=== PATIENT | female | born 1950 | race Caucasian/White ===

== ENCOUNTER 2017-05-31 09:05 | Outpatient (RCR) | payer OTHER, SELFPAY | END 2017-06-22 23:59 | LOC: NS 09:05 | PROVIDERS: Family Provider Family Medicine; PCP Family Medicine; Visit Provider Family Medicine | DX: E78.5 Hyperlipidemia, unspecified (principal); R73.03 Prediabetes; Z71.3 Dietary counseling and surveillance | CPT/HCPCS: 97802 ==

== ENCOUNTER 2017-12-19 13:00 | Outpatient (RCR) | payer OTHER, SELFPAY | END 2017-12-23 23:59 | LOC: NS 13:00 | PROVIDERS: Family Provider Family Medicine; PCP Family Medicine; Visit Provider Family Medicine | DX: E78.5 Hyperlipidemia, unspecified (principal); Z71.3 Dietary counseling and surveillance | CPT/HCPCS: 97803 ==

== ENCOUNTER 2018-01-09 08:48 | Outpatient (RCR) | payer OTHER, SELFPAY | END 2018-01-09 23:59 | LOC: NS 08:48 | PROVIDERS: Family Provider Family Medicine; PCP Family Medicine; Visit Provider Family Medicine | DX: E78.5 Hyperlipidemia, unspecified (principal); R73.03 Prediabetes; Z71.3 Dietary counseling and surveillance | CPT/HCPCS: 97803 ==

== ENCOUNTER → 2021-02-13 14:47 | Outpatient (CLI) | payer OTHER, SELFPAY ==
--- NOTE | 2021-02-13 14:54 | RAD_ITS ---
STUDY: X-RAY - PELVIS REASON FOR EXAM: Female, 70 years old. PAIN TECHNIQUE: One view of the pelvis was obtained. COMPARISON: None. FINDINGS: There is a non-specific bowel gas pattern. Normal visualized soft tissue structures. Normal bilateral iliac wings, sacroiliac joints and visualized sacrum. Normal visualized bilateral superior and inferior pubic rami. Normal pubic symphysis. Normal ischial tuberosities. Normal visualized right femoral head. Normal right acetabulum. Normal right hip joint. Normal visualized left femoral head. Normal left acetabulum. Normal left hip joint. RAD/Pelvis 1 or 2 Views IMPRESSION: Normal x-ray examination of the pelvis. Electronically Signed: Roel Gr MD at 6:18 EDT Tel , Service support ,
[2021-02-13 17:35] LABS: Absolute Lymphocyte Count 2.37 X10^3/uL (0.83-4.51); Basophil# 0.07 X10^3/uL; Basophil% 0.8 % (0-1); Eosinophil# 0.08 X10^3/uL; Eosinophils% 0.9 % (0-5); Hematocrit 46.8 % (37-47); Hemoglobin 14.7 g/dL (12.0-15.0); Lymphocyte # 2.37 X10^3/ul (0.83-4.51); Mean Corp Hgb Conc 31.4 g/dL (32-36); Mean Corpuscular Hgb 30.2 pg (27.0-32.0); Mean Corpuscular Volume 96.3 fL (81-99); Mean Platelet Vol. 10.1 fl (6.2-12.0); Monocyte# 0.46 X10^3/uL; NRBC Flagged by Analyzer 0 % (0-5); Neutrophil # 5.99 X10^3/uL (2.7-7.7); Neutrophil % 65.8 % (47-70); Platelet Count 438 K/mm3 (150-450); RBC Distribution Width CV 13.4 % (11.6-14.6); RBC Distribution Width SD 47.7 fl (35.1-43.9); Red Blood Count 4.86 M/mm3 (4.2-5.4); White Blood Count 9.1 K/mm3 (4.4-11.0)
[2021-02-13 17:36] LABS: ALB/GLOB Ratio 0.9 RATIO (0.9-2.4); AST(SGOT) 16 U/L (15-37); Alanine Aminotransfer ALT/SGPT 37 U/L (13-56); Albumin, Serum 3.9 g/dL (3.2-5.0); Alkaline Phosphatase 119 U/L (45-117); Anion Gap 7 (5-15); BUN 21 mg/dL (7-18); BUN/Creat Ratio 24.1 RATIO (10-20); CRP 8.81 mg/L (0.0-3.0); Calcium,Total 9.9 mg/dL (8.5-10.1); Chloride 101 mmol/L (98-107); Creatinine, Serum 0.87 mg/dL (0.55-1.02); EST Glomerular Filtration Rate 68 mL/min (>60); Est Glom Filt Rate - Afr Amer 83 mL/min (>60); Globulin 4.3 g/dL (2.2-4.2); Glucose 97 mg/dL (74-106); Potassium 4.1 mmol/L (3.5-5.1); Protein, Total 8.2 g/dL (6.4-8.2); Rheumatoid Factor < 10.0 IU/mL (<15); Sodium Level 138 mmol/L (136-145)
[2021-02-13 18:05] LABS: Erythrocyte Sedimentation Rate 13 mm/hr (0-30)
[2021-02-16 08:09] LABS: Hepatitis B Surface Antibody Non-Reactive; Hepatitis B Surface Antigen Non-Reactive (Nonreactive); Hepatitis C Antibody Non-Reactive (Nonreactive)
[2021-02-16 13:20] LABS: ANTINUCLEAR ANTIBODIES DIRECT Negative (Negative)
[2021-02-17 08:33] LABS: CCP IgG Antibodies 4 units (0-19)
== END ==
PROVIDERS: PCP Family Medicine; Referring Provider Internal Medicine Rheumatology; Visit Provider Internal Medicine Rheumatology
DX: M06.4 Inflammatory polyarthropathy (principal); M79.7 Fibromyalgia; M47.897 Other spondylosis, lumbosacral region; D69.2 Other nonthrombocytopenic purpura; R19.8 Other specified symptoms and signs involving the digestive system and abdomen; G62.9 Polyneuropathy, unspecified; I10 Essential (primary) hypertension; H93.13 Tinnitus, bilateral; I71.2 Thoracic aortic aneurysm, without rupture; M21.42 Flat foot [pes planus] (acquired), left foot; K21.9 Gastro-esophageal reflux disease without esophagitis; F41.9 Anxiety disorder, unspecified
CPT/HCPCS: 36415; 72170; 80053; 85025; 85652; 86038; 86140; 86200; 86431; 86706; 86803; 87340

== ENCOUNTER 2022-01-19 13:34 | Outpatient (RCR) | payer OTHER, SELFPAY | END 2022-01-22 23:59 | LOC: DC 13:34 | PROVIDERS: PCP Family Medicine | DX: E11.9 Type 2 diabetes mellitus without complications (principal); E66.9 Obesity, unspecified | CPT/HCPCS: 97802 ==

== ENCOUNTER 2022-03-16 11:00 | Outpatient (RCR) | payer OTHER, SELFPAY | END 2022-03-24 23:59 | LOC: DC 11:00 | PROVIDERS: PCP Family Medicine | DX: E11.9 Type 2 diabetes mellitus without complications (principal) | CPT/HCPCS: 97803 ==

== ENCOUNTER 2022-04-12 14:00 | Outpatient (RCR) | payer OTHER, SELFPAY ==
--- NOTE | 2022-03-09 10:22 | HP.OTEVAL ---
Patient's Visit Information RAMA WOODWARD is a 71 year old F, referred to Occupational Therapy by SHIRAZ DIAS, with a diagnosis of bilateral hand/wrist pain. Date of Evaluation: 03/09/22 Occupational Therapist: Keri Connelly, OTR/Butch, CHT - Subjective This 71 year old female was seen for OT eval with bilateral hand and wrist pain- pt states she has struggles throughout the years due to pain- pt states she would like to know what she can do to decrease her hand and wrist pain to continue with ADLS and IADLS. 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 - ADLs Kitchen: Chop with knife, Peel fruits & vegetables, Open jars, Open bottle caps, Lift gallon of milk, Pour from pitcher, Take dish out of oven - Pain bilateral hand/wrist 5 Pain Intensity Range: 8 - ROM Wrist: right 45/55 left 60/50 CMC: right 15* left 20 MP: right 55* left 60 IP: right 70* left 60* Radial Abduction: right 35* left 40* ROM Comments: demo arthritis deformities on bilateral hands. bilateral shoulder sign at CMC. right MP instability - Strength Tung Nut Grower: right 12# left 17# has pain Lateral Pinch: right unable left 1# - Quick DASH-Disab of Arm,Shoulder& Hand Quick DASH Score: 84.0900 - Goals Goal:: PT will demo an increase in project production engineer strength by 20# to increase independent with basic occupations of daily living to return pt to PLOF by D/C. Pt will demo an increase in lateral and tripod pinch by 2# to increase pts independent with opening baggies, containers at PLOF by D/C. Goal:: Pt will report pain no greater than 1/10 with use of affected hand with BADLs and IADLs by d/c. Goal:: Pt will demo understanding of joint protection and ergonomics when performing BADLs and IADLs by d/c. Pt will demo understanding of adaptive Equipment use to decrease stress on joints to allow pt to perform BADSL and IADLS at BRIDGET level. Goal:: Pt will demo ind. Donning/doffing of custom orthosis by end of 1st session. Pt will demonstrate understanding of orthosis use and precautions by end of 1st session and demonstrate knowledge of returning to clinic if orthosis needs adj. to increase comfort by end of 1st session. Therapist ed. Pt on correct donning/doffing orthosis, use and precautions. Pt agrees to return to clinic to have orthosis adj if needed. - Rehabilitation General Assessment: pt symptoms of pain and noted weakness increase need of assistance with ADLs and IADls- pt would benefit from skilled OT services 1-2x week for 4 weeks to ed. pt on joint protection cristopher, martin of custom orthosis, along with ed. on bracing and modalities to decrease pts pain to increase pts function use of bilateral hands for ADLs by d/c. Rehabilitation Potential: Good - Anticipated Interventions A/AAROM/PROM, Triggerpoint Release, Modalities, Orthoses, Joint Protection/Energy Conservation, Education re assistive Equipment, Education re Diagnosis, Home Program - Visit Plan Frequency: 1-2x /Week Duration: 4 Weeks TEXT: Thank you for the opportunity to evaluate your patient. For Medicare and Medicare HMO plans, please review the plan of care and approve it. It will need to be FAXED BACK to us at [phone] for Medicare purposes. Please let me know if there are questions or concerns regarding this plan of care. Physician Signature: Date:
--- NOTE | 2022-03-09 10:45 | HP.PTEVAL_ITS ---
Patient's Visit Information RAMA WOODWARD is a 71 year old F referred to Physical Therapy by SHIRAZ DIAS with a diagnosis of Back pain. Date of Evaluation: 03/09/22 Physical Therapist: Melo Thrasher, DPT, OCS, CSCS - Visit Plan Frequency: 3x /Week Duration: 4-6 Weeks Plan: 3x/week for 4 weeks for aquatic therapy for. 1. back ROM. 2. HS and quad stretches. 3. posture, core and LE(focus R hip ) strength. 4. Teach all for I progression to community pool as tolerated. - Subjective I had muscles come detached from R hip bone and had surgery in 2018 but it did not take. Saw another surgeon who stitched them back in 2019 but they did not stay. Now R hip and LB hurt every step. Had injection in R hip bursa. Pain is random and radiates and rotates differently. Pain every step and see Dr. Baxter for pain management and got 3rd injection back , bursa and hip and bursa helped most. 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 H/O back surgery tumor benign removal. Has L TKA and partial on R knee. H/o hysterectomy and prolapse and bladder repair. H/o foot problems and hammer toe. prediabetic. Seeing OT for OA in thumbs. Has FM. Will see neurologist for some nerve issues in legs(tingling) Gabapentin helps this. Uses cane to get around, has a rollator walker. Uses it sometimes. Has wh walker at home also. uses motorized cart at store. Can't walk or stand long due to pain in LB. hard to walk to mailbox, feels good sitting. Basic aDLs are getting done painfully. Hobbies include knitting and sewing and limited with hands. Has to take frequent breaks from sitting. Drives. No regular exercises. Had PT in [place], stretching and supine leg strength and counter stretches. - Pain L hip and LB Pain Intensity (Out of 10): 6 Pain Intensity Range: 6, 8 - Objective R trendelenberg in gait obvious without AD but safe. Much better with cane in L UE, short L step length. Pain every step verbally. Transfers bed and chair are I. Steps prefers to use L and requires a rail and cane. Can use R but much weaker and unable to stabilize pelvis as well. AROM ankles WFL and strength 4/5. Knees AROM WFL and strength flexion 4- and extension3+. Hip AROM 0 extension R and 5 L, 100 B flexion, 20 abduction R and 17 L. Rotations are WFL. Strength in hips ext, abd, 3R and 4- L. flexion 4- L and 3+ R. reflexes 2/3 patella and achilles. Sensation WNL to gross light touch. - Balance/Special Test Scores Functional Gait Assessment Score: 18 % Disability: 40.0000 Lower Extremity Functional Score: 7 - Goals Goal 1:: Ambulate 10 minutes with pain 4/10 or less Goal Time Frame: 4-6 Weeks Goal 2:: 50% better subjectively in overall mobility and pian Goal Time Frame: 4-6 Weeks Goal 3:: I appropriate pool program to do in [place] on her own. Goal 4:: LEFS 35 Goal Time Frame: 4-6 Weeks - Rehabilitation Potential Physical Therapy Diagnosis: R hip and back pain and difficulty with mobility Rehabilitation Potential: Questionable - Anticipated Interventions Patient/Client Instruction: Educate patient on: Condition, Plan of Care For the Purpose of:: To decrease pain, To increase ROM, To improve muscle performance and motor function, To increase tolerance to activity/condition/position Therapeutic Exercise to Include: Strength training, Postural training, In an a quatic setting, Active ROM, Dynamic Lumbar Stabilization For the Purpose of:: To decrease pain, To increase ROM, To improve muscle performance and motor function, To increase tolerance to activity/condition/position, To improve ability of physical actions for home/community/work/leisure Thank you for the opportunity to evaluate your patient. For Medicare and Medicare HMO plans, please review the plan of care and approve it. It will need to be FAXED BACK to us at [phone] for Medicare purposes. For Medicare only, by signing this I certify the plan of care. Please let me know if there are questions or concerns regarding this plan of care. Physician Signature: Date:
--- NOTE | 2022-04-05 15:33 | HP.OTDCSUM ---
It has been my pleasure to treat RAMA WOODWARD under orders from SHIRAZ DIAS, for the diagnosis of bilateral hand/wrist pain for a total of 6 visit(s). Please see the following information for a summary of their discharge status. % Improvement: 10 Objective/Function: pt states she has made changes with how she carries her bag and with daily tasks to help to protect her joints. pt states she rest when she can. 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 right 12# left 17#. Today's Urban Planning Teacher strength. L-35#. R- 25#. right lateral pinch unable due to pain at MPJ left lateral pinch 2#. pt has made good gains with her scrap bunch maker strength but continues to have pain-. pt understands joint protection cristopher. utilization of bracing as needed. pt will be d/c with HEP Patient Goals: Decrease Pain, Use Hand/Wrist/Arm Normally Again Goal:: PT will demo an increase in scrap bunch maker strength by 20# to increase independent with basic occupations of daily living to return pt to PLOF by D/C. Pt will demo an increase in lateral and tripod pinch by 2# to increase pts independent with opening baggies, containers at PLOF by D/C. Goal:: Pt will report pain no greater than 1/10 with use of affected hand with BADLs and IADLs by d/c. Goal:: Pt will demo understanding of joint protection and ergonomics when performing BADLs and IADLs by d/c. Pt will demo understanding of adaptive Equipment use to decrease stress on joints to allow pt to perform BADSL and IADLS at BRIDGET level. Goal:: Pt will demo ind. Donning/doffing of custom orthosis by end of 1st session. Pt will demonstrate understanding of orthosis use and precautions by end of 1st session and demonstrate knowledge of returning to clinic if orthosis needs adj. to increase comfort by end of 1st session. Therapist ed. Pt on correct donning/doffing orthosis, use and precautions. Pt agrees to return to clinic to have orthosis adj if needed. Plan: paraffin for at home use( pt. to obtain unit). joint protection. ergonomics. stretching to B hands, wrist Discharge Comments: pt was seen for 6 OT visits. pt was ed. in joint protection and supportive bracing. pt demo understanding of HEP. pt recent dx of DMII and gout. pt will start medication- pt is hopeful medication for her gout will help. pt to cont. with her HEP. pt agrees with d.c. If there are questions or concerns regarding this patient's occupational therapy, please fell free to call me at [phone]. Thank you for the referral of this patient. Sincerely, Keri Connelly, OTR/L, CHT
--- NOTE | 2022-04-12 14:32 | HP.PTDCSUM ---
It has been my pleasure to treat RAMA WOODWARD referred by SHIRAZ DIAS, with the diagnosis of Back pain for a total of 10 visit(s). Discharge Date: 04/12/22 Please see the following information for a summary of their discharge status. Subjective: Just had another injection 04/01 which gave her some relief in the am. Pain not as all encompassing as it was. Therapy is not helping pain but not worse either. Pain is same in the pool as out of the pool. Pain in the last week up to 8/10 and only better lying down. Turning in bed hurts. Walking hurts. will see Dr. Baxter tomorrow. last injection helped somewhat. Just started meds for DM and high levels of uric acid. Uses rollator at home helps a little with hip pain. Wants a break from PT. Has pool ex she will try at the and consider land therapy closer to home. L hip and LB Pain Intensity (Out of 10): 7 RLE Pain Intensity (Out of 10): 7 % Improvement: 0 Objective/Function: Walks with cane but subjectively down and frustrated with lack of improvement. Hopeful with new uric acid meds. Goal 1:: Ambulate 10 minutes with pain 4/10 or less Goal Progress: Not Progressing Goal 2:: 50% better subjectively in overall mobility and pian Goal Progress: Not Progressing Goal 3:: I appropriate pool program to do in [place] on her own. Goal Progress: Goal Met Goal 4:: LEFS 35 Goal Progress: Not Progressing Plan: d/c, pt wants a break and will continue in pool closer to home. If there are questions or concerns regarding this patient's physical therapy, please feel free to call me at [phone]. Thank you for the referral of this patient. Sincerely, Melo Thrasher, DPT, OCS, CSCS Balance/Gait/Functional tests - Balance/Special Test Scores Functional Gait Assessment Score: 18 % Disability: 40.0000 Lower Extremity Functional Score: 13
== END 2022-04-12 19:00 | disposition home or self-care (01) ==
LOC: PT 14:00
PROVIDERS: Referring Provider Internal Medicine Rheumatology
DX: M79.7 Fibromyalgia; M54.9 Dorsalgia, unspecified; M75.21 Bicipital tendinitis, right shoulder; M70.61 Trochanteric bursitis, right hip; M75.22 Bicipital tendinitis, left shoulder; M79.641 Pain in right hand; M79.642 Pain in left hand; M77.01 Medial epicondylitis, right elbow; M77.02 Medial epicondylitis, left elbow; M25.531 Pain in right wrist; M25.532 Pain in left wrist; M25.561 Pain in right knee; M25.562 Pain in left knee; G89.28 Other chronic postprocedural pain; Z96.653 Presence of artificial knee joint, bilateral; G89.29 Other chronic pain; Z79.899 Other long term (current) drug therapy; Z96.652 Presence of left artificial knee joint; R20.2 Paresthesia of skin; I10 Essential (primary) hypertension
CPT/HCPCS: 97035; 97110; 97113; 97140; 97163; 97164; 97166; 97530

== ENCOUNTER 2022-04-20 12:30 | Outpatient (RCR) | payer OTHER, SELFPAY | END 2022-04-24 23:59 | LOC: DC 12:30 | DX: E11.9 Type 2 diabetes mellitus without complications (principal) | CPT/HCPCS: 97803 ==